=== PATIENT | male | born 1965 | race African-American/Black ===

== ENCOUNTER 2018-10-30 06:12 | Inpatient (IN) | payer OTHER ==
[2018-10-22 18:00] VITALS: BMI 23.8
[~2018-10-30 06:12] MED LIST: oxyCODONE HCL 10 MG SUSTAINED ACTING TABLET PO ONE
[2018-10-30] MEDS ORDERED: THROMBIN (RECOMBINANT) 5,000 UNIT VIAL TP ONE (07:19)
[2018-10-30] MEDS ORDERED: GUM MASTIC/STORAX/MSAL/ALCOHOL 1 DRP DROPSBTL MC ONE (07:19)
[2018-10-30] MEDS ORDERED: SODIUM CHLORIDE 0.9% P/F 10 ML VIAL IJ ONE (07:35)
[2018-10-30] MEDS ORDERED: ceFAZolin SODIUM 1 GM VIAL ONE (07:35)
[2018-10-30] MEDS ORDERED: ONDANSETRON 4 MG/2 ML VIAL ONE (07:35)
[2018-10-30] MEDS ORDERED: DEXAMETHASONE SOD PHOSPHATE 4 MG/1 ML VIAL ONE (07:35)
--- NOTE | 2018-10-30 07:45 | HP ---
History & Physical Update - History History: No Change - Physical Physical: No Change - Assessment Assessment: No Change - Plan Plan: No Change
[2018-10-30] MEDS ORDERED: MIDAZOLAM HCL 2 MG/2 ML SINGLE DOSE VIAL ONE ×2 (07:55→09:31)
[2018-10-30] MEDS ORDERED: BUPIVACAINE LIPOSOME/PF (EXPAREL) 266 MG/20 ML VIAL ONE (07:55)
[2018-10-30] MEDS ORDERED: BUPIVACAINE HCL/PF (5 MG/ML) 30 ML VIAL IJ ONE (07:56)
[2018-10-30] MEDS ORDERED: THROMBIN (BOVINE) 5,000 UNIT VIAL TP ONE (09:27)
[2018-10-30] MEDS ORDERED: GELATIN SPONGE,ABSORBABLE 1 GM PACKET TP ONE (09:27)
[2018-10-30] MEDS ORDERED: oxyCODONE HCL 5 MG TABLET PO PRN ×2 (11:03)
[2018-10-30] MEDS ORDERED: ONDANSETRON 4 MG/2 ML VIAL IVPUSH PRN (11:03)
--- NOTE | 2018-10-30 11:10 | OP ---
Operative Note - Note: Operative Date: 10/30/18 Pre-Operative Diagnosis: lumbar spondylolisthesis Operation: posterior lumbar decompression instrumentation, fusion. Transformainal interbody lumbar L4-L5 fusion with allograft and neuromonitoring Surgeon: Nick Gonzalez Software Engineer Developer: Isha Ghotra Anesthesiologist/FRUIT GROWER: Orquidea Laboy Anesthesia: Spinal Estimated Blood Loss (mls): 20 Fluid Volume Replaced (mls): 900 Operative Report Dictated: Yes
--- NOTE | 2018-10-30 11:11 | SURG ---
Surgery Electric Motor Fitter Note Electric Motor Fitter: Isha Ghotra PA-C Date of Service: 10/30/18 Diagnosis: lumbar spondylolisthesis Procedure: posterior lumbar decompression instrumentation, fusion. Transformainal interbody lumbar L4-L5 fusion with allograft and neuromonitoring I was present for the entirety of the operative procedure. For further detail, please refer to operative report. Visit type - Case Type Case Type: Scheduled - Emergency Emergency Visit: No - New patient This patient is new to me today: Yes Date on this admission: 10/30/18
[2018-10-30] MEDS ORDERED: ACETAMINOPHEN 1000 MG/100 ML VIAL (NON FORMULARY) IVPB ONE (11:15)
[2018-10-30] MEDS ORDERED: LACTATED RINGERS SOLUTION 1,000 ML IV SCH (11:15)
[2018-10-30] MEDS ORDERED: diazePAM 2 MG TABLET PO SCH (12:00)
[2018-10-30] MEDS ORDERED: diazePAM 2 MG TABLET ONE (12:37)
[2018-10-30] MEDS ORDERED: oxyCODONE HCL 5 MG TABLET ONE (14:04)
[2018-10-30] MEDS ORDERED: MEPERIDINE HCL CARPU-JECT 25 MG/1 ML DISP.SYRIN ONE (14:32)
--- NOTE | 2018-10-30 15:22 | OP ---
DATE OF OPERATION: 10/30/2018 PREOPERATIVE DIAGNOSIS: Spondylolisthesis, L4-5. POSTOPERATIVE DIAGNOSIS: Spondylolisthesis, L4-5. PROCEDURE PERFORMED: 1. Transforaminal lumbar interbody fusion, L4-5. 2. Placement introduced in L4-5. 3. Placement of prosthetic cage. SURGEON: Nick Gonzalez MD COREMAKER PIPE: JESSY Cagle ESTIMATED BLOOD LOSS: 50 mL. INTRAVENOUS FLUIDS: Per Anesthesia. ANESTHESIA: Spinal/TLIP. COMPLICATIONS: There were none. DISPOSITION: Patient brought to the PACU in stable condition. INDICATION FOR SURGERY: Patient is a 53-year-old gentleman who has been suffering from pain from his back down his legs. X-rays and MRI were completed which showed that he had spondylolisthesis at L4-5 giving him stenosis at that level. He had gone through an exhaustive course of treatment for this which included medications, physical therapy, as well as injections. Unfortunately, his pain continued to persist despite all this. At this point, risks, benefits, and alternatives are discussed, and the patient consented to surgery. DESCRIPTION OF PROCEDURE: Patient was brought to the operating room by the Anesthesia staff after appropriate patient identification was performed. Spinal anesthesia was given. A TLIP block was given. Patient was able to position himself prone onto the OR table with all areas of bony prominences well padded at this time. The C-arm was brought in, and the L4-5 pedicles were marked off. His back was Two needles were placed in his back to michelle off the L4-S1 segments. X-ray was taken to confirm this was correct. Needle was removed, and 10 mL of lidocaine with epinephrine was injected into the back. At the time, his back was prepped and draped in a sterile manner. At this point, a timeout was completed, and an incision was made from the top of L4 down to the bottom of L5. Dissection was carried down to the fascia. The fascia was then split open at this time. Under C-arm guidance, trocars were advanced to both the L4 and L5 pedicles. Through the trocars, a wire was inserted. Over the wires, tap was performed and screws were inserted. On the left side, retractor blades were set up to expose the L4-5 facet joint. The facet joint was removed. The disk was entered using a series of pituitaries, Kerrisons, and curettes. A diskectomy was completed. Bone graft was placed in. Cage filled with bone graft was placed in. Tulip heads were placed over the screws. A nathaniel was measured and placed, and caps and compression was applied. On the right-hand side, a nathaniel was measured and placed, and caps and compression was applied. All instrumentation was removed at this time. AP and lateral x-rays confirmed the instrumentation to be in good position. The fascia was closed with a number 1 Vicryl suture. Subcutaneous tissue was closed with 2-0 Vicryl sutures. Skin was closed with 3-0 Monocryl suture. Dermabond was applied. Steri-Strips were applied. Sterile dressing was applied. Patient was placed supine on the OR bed and brought to the PACU in stable condition. NICK GONZALEZ M.D. FAUSTO/[id number]
[2018-10-30] MEDS ORDERED: CEFAZOLIN 1 GM/D5W 1 GM/50 ML BAG ONE (15:46)
[2018-10-30] MEDS ORDERED: ceFAZolin SODIUM 1 GM VIAL IVPB ONE (16:00)
[2018-10-30] MEDS ORDERED: CEFAZOLIN 1 GM/D5W 1 GM/50 ML BAG IVPB SCH (16:00)
[2018-10-30] MEDS ORDERED: ACETAMINOPHEN INJECTION 100 ML IVPB ONE (16:04)
[2018-10-30] MEDS ORDERED: ACETAMINOPHEN 325 MG TABLET (FP) PO SCH (17:15)
[2018-10-30 18:01] VITALS: BP 112/79; PULSE 71; TEMP 98.6
== END 2018-10-30 17:15 | disposition home or self-care (01) | DRG 304 ==
LOC: FM/S 06:12 → MERGE 06:12 → EDSEX 09:45
PROVIDERS: ADMIT Orthopaedic Surgery Orthopaedic Surgery of the Spine; ATTEND Orthopaedic Surgery Orthopaedic Surgery of the Spine
PROC: 0SG00J1 Fusion of Lumbar Vertebral Joint with Synthetic Substitute, Posterior Approach, Posterior Column, Open Approach (ICD-10-PCS; 2018-10-30)
PROC: 0ST20ZZ Resection of Lumbar Vertebral Disc, Open Approach (ICD-10-PCS; 2018-10-30)
PROC: 4A11X4G Monitoring of Peripheral Nervous Electrical Activity, Intraoperative, External Approach (ICD-10-PCS; 2018-10-30)
PROC: 0SG00AJ Fusion of Lumbar Vertebral Joint with Interbody Fusion Device, Posterior Approach, Anterior Column, Open Approach (ICD-10-PCS; principal; 2018-10-30 09:23)
DX: M43.16 Spondylolisthesis, lumbar region (principal)
CPT/HCPCS: 72100-TC-FY; 76000-TC-FY; 82962; 94760; J0131

== ENCOUNTER 2019-10-23 06:58 | Day surgery (SDC) | payer OTHER ==
[2019-10-20 11:36] VITALS: BMI 26.6
[2019-10-23] MEDS ORDERED: EPINEPHrine 1:1,000 1 MG/1 ML - 30ML VIAL (INJECTION) ONE (08:16)
[2019-10-23] MEDS ORDERED: BUPIVACAINE HCL/PF 2.5 MG/ML - 30 ML VIAL IJ ONE (08:16)
[2019-10-23] MEDS ORDERED: MIDAZOLAM HCL 2 MG/2 ML SINGLE DOSE VIAL ONE (08:41)
[2019-10-23] MEDS ORDERED: SUCCINYLCHOLINE CHLORIDE 200 MG/10 ML SYRINGE ONE (08:46)
[2019-10-23] MEDS ORDERED: PROPOFOL 20 ML ONE ×2 (08:46)
[2019-10-23] MEDS ORDERED: KETOROLAC TROMETHAMINE 30 MG/1 ML VIAL ONE (08:50)
[2019-10-23] MEDS ORDERED: ONDANSETRON 4 MG/2 ML VIAL ONE (08:50)
[2019-10-23] MEDS ORDERED: DEXAMETHASONE SOD PHOSPHATE 4 MG/1 ML VIAL ONE (08:50)
[2019-10-23] MEDS ORDERED: ceFAZolin SODIUM 1 GM VIAL ONE (08:55)
[2019-10-23] MEDS ORDERED: EPINEPHrine 1:1,000 - 30 MG/30 ML VIAL IM ONE ×2 (09:18)
[2019-10-23] MEDS ORDERED: BUPIVACAINE HCL/PF 0.25% (2.5MG/ML) 10 ML VIAL IJ ONE (09:18)
[2019-10-23] MEDS ORDERED: oxyCODONE HCL 5 MG TABLET PO PRN (09:51)
[2019-10-23] MEDS ORDERED: ONDANSETRON 4 MG/2 ML VIAL IVPUSH PRN (09:51)
[2019-10-23] MEDS ORDERED: LACTATED RINGERS SOLUTION 1,000 ML IV SCH (10:00)
[2019-10-23] MEDS ORDERED: oxyCODONE HCL 5 MG TABLET ONE (11:24)
[2019-10-23 12:09] VITALS: PULSE 77
[2019-10-23 12:14] VITALS: BP 141/83; TEMP 97.9
--- NOTE | 2019-10-25 15:40 | OP ---
DATE OF OPERATION: 10/23/2019 LOCATION: [facility] SURGEON: Isreal Carreon MD SCIENTIFIC PROGRAMMER: JESSY Langford PREOPERATIVE DIAGNOSES: 1. Right knee medial and lateral meniscal tear. 2. Right knee cartilage injury. 3. Right knee synovitis. POSTOPERATIVE DIAGNOSES: 1. Right knee medial and lateral meniscal tear. 2. Right knee cartilage injury. 3. Right knee synovitis. PROCEDURE: 1. Right knee arthroscopy, partial meniscectomy of lateral meniscus, CPT code 08739. 2. Right knee arthroscopy with chondroplasty and abrasioplasty, CPT code 50098. 3. Right knee arthroscopy with synovectomy, CPT code 17697. FINDINGS: 1. Medial meniscus body of posterior horn tear. 2. Lateral meniscus posterior horn tear. 3. Synovitis of patellofemoral and mediolateral notch area. 4. Medial femoral condyle minor grade 2 changes, anteromedial femoral condyle. 5. ACL and PCL intact. 6. Minor grade 2 changes, central lateral tibial plateau. 7. Central one-third grade 3 to 4 changes of patella and patellofemoral trochlea. PROCEDURE: Informed consent was obtained. The patient came to the operating room, where the lower extremity was prepped and draped in a sterile fashion. A tourniquet was placed on the upper thigh, but not inflated. Using standard arthroscopic technique, a lateral incision and portal was made to allow for introduction of the camera into the suprapatellar bursa. This was then taken to the medial joint line, where under direct visualization, a medial incision and portal was made. Excessive synovium noted in the medial, lateral and patellofemoral and notch area was removed by an upbiter, shaver and Bovie cautery. This was found to bring in inflammatory tissue into the joint surface, a source of pain and dysfunction. Probing of the medial and lateral meniscus found tears, as described in the findings. These were removed with the upbiter and shaver and taken back to a stable rim. Grade 2 to 3 degenerative changes were treated with a chondroplasty, removing all flaking surfaces with low-setting Bovie along the periphery to prevent further flaking. Grade 4 changes, as noted, were treated with an abrasoplasty, creating a bleeding surface at the bone/cartilage interface. Aggressive debridement with shaver/lizz created bleeding surface. Micro fracture also done when indicated in findings. All areas of the knee were once again reexamined. The knee was then drained and a single suture was placed in all portals. A sterile dressing was placed and the patient was transferred to the recovery room without complication. The PA listed above was present and assisted at surgery. Their presence was absolutely medically necessary for the completion of the procedure. They helped hold the arthroscope, pass instruments (and implants when indicated), and the procedure could not have been completed without their assistance. ISREAL CARREON M.D. [id number]
--- NOTE | 2019-10-27 10:44 | PATH ---
Surgical Pathology Report Patient Name: ELY TIRADO [facility]. Rec. #: [id number] /Age/Gender: 1965 (Age: 54) / M Account: [id number] [facility] Taken: 10/23/2019 Received: 10/23/2019 Reported: 10/27/2019 Physicians: Isreal St M.D. Specimen(s) Received SHAVINGS RIGHT KNEE Clinical History Internal derangement right knee Final Diagnosis KNEE, RIGHT, ARTHROSCOPIC SHAVINGS: FIBROSYNOVIAL, FIBROCARTILAGINOUS AND FIBROCOLLAGENOUS TISSUE. Electronically Signed Hetal Harvey M.D. Gross Description Received in formalin, labeled "right knee shavings," is a 4.5 x 4.5 x 0.4 cm. aggregate of mcgee-yellow soft tissue fragments. A technology sales representative portion is submitted in one cassette. /10/23/2019 [facility]10/23/2019
== END 2019-10-23 12:14 | disposition home or self-care (01) ==
LOC: MERGE 06:58 → FASU 06:58
PROVIDERS: ATTEND Orthopaedic Surgery
PROC: 0SBC4ZZ Excision of Right Knee Joint, Percutaneous Endoscopic Approach (ICD-10-PCS; 2019-10-23)
PROC: 0SBC4ZZ Excision of Right Knee Joint, Percutaneous Endoscopic Approach (ICD-10-PCS; 2019-10-23)
PROC: 0SBC4ZZ Excision of Right Knee Joint, Percutaneous Endoscopic Approach (ICD-10-PCS; principal; 2019-10-23 08:45)
DX: S83.241A Other tear of medial meniscus, current injury, right knee, initial encounter (principal); S83.281A Other tear of lateral meniscus, current injury, right knee, initial encounter; S83.8X1A Sprain of other specified parts of right knee, initial encounter; M65.861 Other synovitis and tenosynovitis, right lower leg; X58.XXXA Exposure to other specified factors, initial encounter; Y93.9 Activity, unspecified; Y92.9 Unspecified place or not applicable
CPT/HCPCS: 88304-TC; 94760

== ENCOUNTER 2022-09-21 11:36 | Day surgery (SDC) | payer OTHER ==
[2022-09-18 16:04] VITALS: BMI 27.3
[2022-09-21] MEDS ORDERED: PROPOFOL 20 ML ONE ×2 (13:36→13:37)
[2022-09-21] MEDS ORDERED: MIDAZOLAM HCL 2 MG/2 ML SINGLE DOSE VIAL ONE (13:36)
[2022-09-21] MEDS ORDERED: SEVOFLURANE 250 ML BTL ONE (13:38)
[2022-09-21] MEDS ORDERED: ROPIVACAINE HCL 0.5% 30ML VIAL ONE (13:50)
[2022-09-21] MEDS ORDERED: ePHEDrine SULFATE 50 MG/1 ML AMPULE ONE (14:45)
[2022-09-21] MEDS ORDERED: SODIUM CHLORIDE 0.9% P/F 10 ML VIAL IJ ONE ×2 (15:24)
[2022-09-21] MEDS ORDERED: ONDANSETRON 4 MG/2 ML VIAL IVPUSH PRN (15:47)
[2022-09-21] MEDS ORDERED: ACETAMINOPHEN 1000 MG/100 ML BAG IVPB ONE (15:47)
[2022-09-21] MEDS ORDERED: oxyCODONE HCL 5 MG TABLET PO PRN (15:47)
[2022-09-21] MEDS ORDERED: FENTANYL CITRATE/PF 50 MCG/ML VIAL ONE ×2 (15:53→16:09)
[2022-09-21] MEDS ORDERED: ACETAMINOPHEN INJECTION 100 ML IVPB ONE (15:53)
[2022-09-21] MEDS ORDERED: LACTATED RINGERS SOLUTION 1,000 ML IV SCH (16:00)
[2022-09-21 17:12] VITALS: PULSE 76
[2022-09-21 17:31] VITALS: BP 128/71; RESP 18; TEMP 98
== END 2022-09-21 17:20 | disposition home or self-care (01) ==
LOC: MERGE 11:36 → FASU 11:36 → EDSEX 12:00 → FASU 17:20
PROVIDERS: ATTEND Orthopaedic Surgery
PROC: 0PB94ZZ Excision of Right Clavicle, Percutaneous Endoscopic Approach (ICD-10-PCS; 2022-09-21)
PROC: 0RBJ4ZZ Excision of Right Shoulder Joint, Percutaneous Endoscopic Approach (ICD-10-PCS; 2022-09-21)
PROC: 0LS34ZZ Reposition Right Upper Arm Tendon, Percutaneous Endoscopic Approach (ICD-10-PCS; principal; 2022-09-21 14:54)
DX: M75.101 Unspecified rotator cuff tear or rupture of right shoulder, not specified as traumatic (principal); S46.111A Strain of muscle, fascia and tendon of long head of biceps, right arm, initial encounter; M75.01 Adhesive capsulitis of right shoulder; M75.41 Impingement syndrome of right shoulder; M19.011 Primary osteoarthritis, right shoulder; S43.431A Superior glenoid labrum lesion of right shoulder, initial encounter; X58.XXXA Exposure to other specified factors, initial encounter; Y93.9 Activity, unspecified; Y92.9 Unspecified place or not applicable; M65.811 Other synovitis and tenosynovitis, right shoulder
CPT/HCPCS: 94760; C1713

== ENCOUNTER 2023-04-07 09:44 | Emergency (ER) | payer OTHER ==
[2023-04-07 09:53] VITALS: BP 154/86; PULSE 57; RESP 18; TEMP 98; BMI 24.7
[2023-04-07] MEDS ORDERED: DIPHTH,PERTUSS(ACELL),TET 0.5 ML DISP.SYRIN IM ONE (11:03)
== END 2023-04-07 11:33 | disposition home or self-care (01) ==
LOC: JER 09:44 → JERFT 09:44
PROC: 0HQGXZZ Repair Left Hand Skin, External Approach (ICD-10-PCS; principal; 2023-04-07)
PROC: 3E0234Z Introduction of Serum, Toxoid and Vaccine into Muscle, Percutaneous Approach (ICD-10-PCS; 2023-04-07)
DX: S61.012A Laceration without foreign body of left thumb without damage to nail, initial encounter (principal); W31.2XXA Contact with powered woodworking and forming machines, initial encounter; Y93.89 Activity, other specified
CPT/HCPCS: 12001-25; 73140-TC-LT-FY; 90471; 90715; 99283-25